=== PATIENT | female | born 1995 | race Caucasian/White ===

== ENCOUNTER 2017-07-30 13:52 | Outpatient (CLI) | payer MEDICAID, SELFPAY ==
[2017-07-30 14:05] VITALS: BP 121/71; PULSE 83; RESP 18; TEMP 36.7; O2SAT 100; BMI 23.6
[2017-07-30 14:39] LABS: Microscopic, Urine URINE MICROSCOPIC (MICROSCOPIC)
[2017-07-30 14:47] LABS: Appearance,Urine CLEAR (Clear); Bilirubin,Urine Negative (Negative); Blood, Urine 1+ (Negative); Color,Urine YELLOW (Yellow); Glucose,Urine (UA) Negative (Negative); Ketones,Urine Negative (Negative); Leukocyte Esterase,Urine Negative (Negative); Nitrate,Urine Negative (Negative); Protein,Urine Negative (Negative); Urobilinogen,Urine 0.2 EU/dl (0.2)
[2017-07-30 14:56] LABS: Amphetamine/Metha Screen,Urine Negative ng/mL (<1000); Barbiturates Screen,Urine Negative ng/mL (<200); Benzodiazepines Screen,Urine Negative ng/mL (200); Cannabinoid Screen,Urine Negative ng/mL (<50); Cocaine Screen,Urine Negative ng/g (<300); Methadone Screen,Urine Negative ng/mL (<300); Opiate Screen,Urine Negative ng/mL (<300); Phencyclidine Screen,Urine Negative ng/mL (<25)
[2017-07-30 15:00] LABS: Bacteria,Urine 3+ /lpf; Mucus,Urine 2+ /lpf
== END 2017-07-30 16:20 | disposition hospice, home (50) ==
LOC: OBOUT 13:57 → OB 13:57
PROVIDERS: PCP Nurse Practitioner Obstetrics & Gynecology; Visit Provider Obstetrics & Gynecology
DX: O60.03 Preterm labor without delivery, third trimester (principal); Z3A.35 35 weeks gestation of pregnancy
CPT/HCPCS: 59025; 80305; 81001; 87086; 96360; 96367

== ENCOUNTER → 2017-08-02 17:28 | Outpatient (REF) | payer MEDICAID, SELFPAY | LOC: LAB 17:28 | PROVIDERS: Visit Provider Nurse Practitioner Obstetrics & Gynecology | DX: Z34.90 Encounter for supervision of normal pregnancy, unspecified, unspecified trimester (principal) | CPT/HCPCS: 86403 ==

== ENCOUNTER → 2017-08-22 11:29 | Outpatient (CLI) | payer MEDICAID, SELFPAY ==
--- NOTE | 2017-08-22 | US_ITS ---
US OB biophysical profile, US OB follow up, US SD Ratio umbilcal artery: Indication: Small for gestational age ITS.REASON: US OB- SGA ORDERING PHYSICIAN: Ran Clayton MD PATIENT AGE: 22 years COMPARISON is made to 04/18/2017 exam FINDINGS: There is a single live fetus present in cephalic presentation. Average ultrasound age is 36 weeks 4 days with an estimated due date of 09/15/2017. Previous exam estimated due date of 09/05/2017. Estimated due date by last menstrual period is 09/03/2017. The following parameters are obtained: Average ultrasound age is 36w4d. Estimated due date by ultrasound is 09/15/2017. Estimated weight is 2875 g. This is 16th percentile BPD: 36w5d OFD: 39w4d HC: 36w5d AC: 35w5d FL: 37w1d heart rate: 136 bpm. HC/AC: 1.02 (0.92-1.05) Cephalic index: 79% (70-86%) FL/BPD: 80% (71-87%) FL/AC: 23% (20-24%) Amniotic fluid index: 8.4 cm Qualitative AFV: 2 breathing movements: 2 Gross body movements: 2 Tone: 2 Biophysical profile score: 8/8 Doppler evaluation of the umbilical artery: SD ratio: 3.5 Resistive index: 0.72 No obvious anomalies evident. Placenta: posterior and grade 2. No obvious previa or abruption Cervix: Appears closed and measures 3 cm IMPRESSION: There is a single live fetus in cephalic presentation with an average ultrasound age of 36 weeks and 4 days measuring at 16 percentile. No obvious anomalies. All parameters correlate. Biophysical profile 8 of 8. Amniotic fluid index at lower limits of normal at 8 cm S/D ratio and resistive index both slightly elevated. Placenta is grade 2.
== END ==
PROVIDERS: PCP Family Medicine; Visit Provider Nurse Practitioner Obstetrics & Gynecology
DX: O36.5131 Maternal care for known or suspected placental insufficiency, third trimester, fetus 1 (principal)
CPT/HCPCS: 76816; 76819; 76820

== ENCOUNTER 2017-08-31 04:54 | Inpatient (IN) | payer MEDICAID, SELFPAY ==
[2017-08-31 05:01] VITALS: BMI 25.9
[2017-08-31 05:15] VITALS: BP 151/81; PULSE 85; RESP 17; TEMP 36.7; O2SAT 98; BMI 25.9
[2017-08-31 05:53] LABS: Basophils % 0.3 % (0.1-2.0); Eosinophils % 0.4 % (0.1-12.0); Hemoglobin 12.3 g/dL (12.2-16.2); Lymphocytes % 19.8 K/mm3 (10-50); Mean Corpuscular HGB Conc 32.3 g/dL (31.8-35.4); Mean Corpuscular Hemoglobin 27.2 pg (27.0-31.2); Mean Corpuscular Volume 84.2 fl (81-99); Monocytes # 0.4 K/mm3 (0.1-1.0); Monocytes % 3.6 % (1.7-9.3); Neutrophils # 7.7 K/mm3 (1.8-7.8); Neutrophils % 75.8 % (37.0-80.0); Platelet Count 285 K/mm3 (142-424); Red Blood Count 4.51 M/mm3 (4.20-5.40); Red Cell Distribution Width 13.3 % (11.5-17.5); White Blood Count 10.1 K/mm3 (4.8-10.8)
[2017-08-31 06:14] LABS: Amphetamine/Metha Screen,Urine Negative ng/mL (<1000); Barbiturates Screen,Urine Negative ng/mL (<200); Benzodiazepines Screen,Urine Negative ng/mL (200); Cannabinoid Screen,Urine Negative ng/mL (<50); Cocaine Screen,Urine Negative ng/g (<300); Methadone Screen,Urine Negative ng/mL (<300); Opiate Screen,Urine Negative ng/mL (<300); Phencyclidine Screen,Urine Negative ng/mL (<25)
[2017-08-31 07:30] VITALS: BP 127/71; PULSE 68; RESP 18; TEMP 36.9; O2SAT 99
--- NOTE | 2017-08-31 08:31 | HMH.OBAPHP ---
OB - H&P: HPI Antepartum - History of Present Illness Chief complaint: Early labor, contractions - History of Present Criteria for establishing EDC:: LMP confirmed by 1st trimester US care: good care Ultrasounds: normal 1st trimester US, normal mid trimester US Obstetrical complications: none Medical complications: none Planning to breastfeed?: Yes [facility] History I have reviewed the patient's past medical history: Yes Medical History: Reports:: Depression Denies:: Anxiety, Asthma, Seizures Laterality Cases: Bilateral: Tonsillectomy Amputation: No Fractures: No - *Social History Smoking Status: Current every day smoker Tobacco Type: cigarettes # Packs/Day (cigarettes): 1 Alcohol Intake: never Substance Use Type: marijuana, opiates - Psychiatric History Pschychiatric History:: Reports:: Depression Denies:: Anxiety *Family Hx:: Diabetes, Hypertension Para: 1 Meds Home Medications Medication Instructions Recorded Confirmed Type fluoxetine 10 mg capsule 10 mg PO QDAY 06/30/17 08/31/17 History 1 tab PO QDAY 06/30/17 08/31/17 History vitamin,calcium,chxsbcqs-cmtf-qqcmn acid tablet Allergies Allergy/AdvReac Type Severity Reaction Status Date / Time No Known Drug Intolerances Allergy Unknown NA Verified 08/29/17 11:02 OB - H&P: Exam - Physical Exam Vital signs: Temp Pulse Resp BP Pulse Ox 98.0 F 85 17 151/81 98 08/31/17 05:15 08/31/17 05:15 08/31/17 05:15 08/31/17 05:15 08/31/17 05:15 - Constitutional no acute distress OB - Results - Labs Labs: Short CBC 08/31/17 Range/Units 05:30 WBC 10.1 (4.8-10.8) K/mm3 Hgb 12.3 (12.2-16.2) g/dL Hct 38.0 (37.0-47.0) % Plt Count 285 (142-424) K/mm3 OB - A/P Antepartum (1) Normal delivery at term Current visit: Yes Status: Acute - Additional Plan Plan: expectant management (We have ruptured her membranes.) Planning to breastfeed?: Yes
--- NOTE | 2017-08-31 08:33 | HMH.LABNOT ---
Labor Note - Subjective: Date: 08/31/17 Time: 08:33 regular contraction - Objective: NST:: Reactive Contractions:: every 2-3 minutes Cervical Dilation:: 4 Effacement:: 75% Station: -2 Membranes: articially ruptured - Fetus: Monitoring?: Yes monitoring type:: External - Assessment: Labor progressing?: Yes Patient Problems: All Active Problems Normal delivery at term (Acute) (Acute) - Plan: Anesthesia for epidural?: No Continue to labor down?: Yes Plan for ?: No Continue to monitor?: Yes Start pushing?: No
--- NOTE | 2017-08-31 09:45 | P.PN_ITS ---
[facility] Anesthesia Checklist - Patient Identification Patient Identification: Arm Band, Verbal (Name & ) - Structural Data Admitted From: Inpatient Planned Operative Procedure/s: labor epidural Consent for Planned Operative Procedure(s) Verified: Yes Verified Documents: Surgical Consent - NPO Status Verified Time NPO: 00:00 - Chart Verification Results Verified: CBC, BMP - Additional verifications Patient : No Anesthesia Reactions: No Hx Blood Transfusions: No Blood Transfusion Reaction: No Cephalosporin Allergy: No Previous Colonoscopy: No - Cardiovascular Assessment Heart Sounds: S1 & S2 Pulse Strength: Baseline Pulse Rhythm: Regular Peripheral Edema: No - Airway Assessment C-Spine Mobility Assessed: Yes TMJ Mobility Assessed: Yes Dentition: Good Dentition - Neurological Assessment Level of Consciousness: Awake, Alert, Appropriate Hx Seizures: No Numbness or tingling in extremities: No - Anesthesia Plan Anesthesia Risk discussed: Yes Anesthesia Plan: Verified ASA Class: II Anesthesia Type: Epidural [facility] Anesthesia HX I have reviewed the patient's past medical history: Yes Medical History: Reports:: Depression Denies:: Anxiety, Asthma, Seizures Laterality Cases: Bilateral: Tonsillectomy Amputation: No Fractures: No *Family Hx:: Diabetes, Hypertension
--- NOTE | 2017-08-31 10:45 | HMH.LABNOT ---
Labor Note - Subjective: Date: 08/31/17 Time: 10:45 regular contraction - Objective: NST:: Reactive Contractions:: every 2-3 minutes Cervical Dilation:: 4-5 Effacement:: 75% Station: -1 Membranes: articially ruptured - Fetus: Monitoring?: Yes monitoring type:: External - Assessment: Labor progressing?: Yes Cephalopelvic disproportion?: No Patient Problems: All Active Problems Normal delivery at term (Acute) (Acute) - Plan: Anesthesia for epidural?: Yes Continue to labor down?: Yes Plan for ?: No Continue to monitor?: Yes Start pushing?: No
--- NOTE | 2017-08-31 13:17 | HMH.DN ---
- Delivery Note Delivery Date:: 08/31/17 Delivery Time:: 13:07 Anesthesia Type: Epidural Was labor medically induced?: No Induction method: none delivered prior to 39 weeks?: No Justification for early elective delivery:: Active Labor Gender: Female at 1 minute: 9 at 5 minutes: 9 AF:: Clear fluid Delivery Procedure:: She is a 22-year-old 2 para 1 who was 39+ weeks gestational age. She was having irregular contractions and was found to be 4 cm dilated. As result of that we elected to deliver her. She had her membranes ruptured and under labor epidural progressed to full dilation. She delivered spontaneously a liveborn female child at 1:07 PM in the afternoon of August 31, 2017. On deliver the head the anterior shoulder then delivered followed by the rest of the infant's body atraumatically. The oropharynx and nasopharynx were bulb suctioned. The baby cried spontaneously. We allowed the cord to continue to pulsate for 1 minute. The cord was then doubly clamped and cut and the infant was placed on the mother's abdomen for further care. The nurses assigned Apgars of 9 at 1 minute and 9 at 5 minutes. We then obtained cord blood as well as cord pH. Using gentle traction on the cord and countertraction on the fundus I was able to easily deliver the placenta intact. He had a normal three-vessel cord. There were no perineal or vaginal lacerations. She has O+ blood, she is rubella immune and was group A streptococcus negative. She plans to breast-feed. Estimated blood loss was approximately 400 cc. Placental Delivery Description: Spontaneous
--- NOTE | 2017-08-31 15:46 | SW/DCPLANNER ---
Addendum entered by [place] Ple[place] Unity 10/04/17 10:34: Infant cord screen is NEGATIVE. Original Note: Addendum entered by [place] Ple[place] Unity 09/01/17 14:00: I have spoke with Annemarie from the [place] office...Annemarie will be contacting our OB department. Annemarie: [phone] Original Note: Addendum entered by [place] Ple[place] 09/01/17 13:09: Mauricio Arredondo is NOT the worker on this case.....[phone] Original Note: Addendum entered by [place] Ple[place] Unity 09/01/17 12:12: This case was accepted by [facility] and has been assigned to ordnance truck installation supervisor at moment Mauricio Arredondo in [facility]. [phone] Original Note: Received a referral regarding drug use during this patients . Patient delivered a liveborn female (Maryam Arredondo) this afternoon. Patient also has a 15 month old son (Zac Arredondo). Father of both children is Brice Arredondo. Family will reside with fathers mother at [address] [place] [address] in [place] [address]. Patient tested positive for BZO, OYX, THC on first visit 02/03. Patient urine drug screen was negative on: 03/03, 07/12, 07/30, 08/15, 08/22, 08/29, 08/31 (admission). has begin to score (3) at this time due to sneezing and tremors. This situation has been reported to [facility] Central Intake [phone]. I will call and follow up with infant urine once available. Patient and infant are already established with [facility] and refuses HANDS at this time. Patient stated that they have a crib, carseat, clothing, and patient has stated they will have diapers before they discharge. Patient stated she has had no social service involvement in the past. I will follow up with [facility] tomorrow morning. Patient is expected to discharge on Tuesday09/02/17.
[2017-08-31 20:00] VITALS: BP 137/78; PULSE 87; RESP 18; TEMP 36.3; O2SAT 97
[2017-09-01 00:20] VITALS: BP 129/74; PULSE 81; RESP 16; TEMP 36.6
[2017-09-01 05:20] VITALS: BP 121/65; PULSE 75; RESP 16; TEMP 36.9; O2SAT 98
[2017-09-01 06:48] LABS: Hemoglobin 10.7 g/dL (12.2-16.2)
--- NOTE | 2017-09-01 08:23 | HMH.ACPN2 ---
Internal Medicine - PN: Subj *Date: 09/01/17 *Time: 08:23 Exam Vital signs and Labs for Last 24 Hours: Temp Pulse Resp BP Pulse Ox 98.4 F 75 16 121/65 98 09/01/17 05:20 09/01/17 05:20 09/01/17 05:20 09/01/17 05:20 09/01/17 05:20 Laboratory Results - last 24 hr 08/31/17 13:16: Cord ABG pH 7.40 09/01/17 06:30: Hgb 10.7 L, Hct 33.0 L I & O for Last 24 hours: Intake & Output 08/29/17 08/30/17 08/31/17 09/01/17 11:59 11:59 11:59 11:59 Intake Total 2650 / 2650 Balance 2650 / 2650 Weight 156 lb Assessment and Plan (1) Normal delivery at term Current visit: Yes Status: Acute Category: Medical Code(s): O80 - Encounter for full-term uncomplicated delivery
--- NOTE | 2017-09-01 08:26 | HMH.ACPN2 ---
Internal Medicine - PN: Subj *Date: 09/01/17 *Time: 08:26 Interval history: She is doing well this morning and she is eating and drinking and ambulating. She is bottlefeeding. Exam Vital signs and Labs for Last 24 Hours: Temp Pulse Resp BP Pulse Ox 98.4 F 75 16 121/65 98 09/01/17 05:20 09/01/17 05:20 09/01/17 05:20 09/01/17 05:20 09/01/17 05:20 Laboratory Results - last 24 hr 08/31/17 13:16: Cord ABG pH 7.40 09/01/17 06:30: Hgb 10.7 L, Hct 33.0 L I & O for Last 24 hours: Intake & Output 08/29/17 08/30/17 08/31/17 09/01/17 11:59 11:59 11:59 11:59 Intake Total 2650 / 2650 Balance 2650 / 2650 Weight 156 lb - Constitutional no acute distress Assessment and Plan (1) Normal delivery at term Current visit: Yes Status: Acute Category: Medical Code(s): O80 - Encounter for full-term uncomplicated delivery - Assessment and plan all Dx Assessment and Plan for all problems:: She is doing well we will plan to send her home tomorrow.
[2017-09-01 11:07] VITALS: RESP 18
[2017-09-01 16:11] VITALS: RESP 18
--- NOTE | 2017-09-01 20:20 | PC.NURSE ---
social services assistant prevention plan: to go home with parents upon discharge saravanan Frederick would like to be contacted when results of cord are returned work #[phone] or cell # [phone]
--- NOTE | 2017-09-02 08:17 | HMH.DCSUM ---
General - General Admission date: 08/31/17 Discharge date: 09/02/17 HPI HPI: She is a 22-year-old 2 now para 2 who was 39 and 4 weeks gestational age. She came in in early labor. Hospital Course Hospital Course: She progressed to full dilation and delivered spontaneously a liveborn female child at 1:07 PM in the afternoon of August 31, 2017. Baby had Apgars of 9 at 1 minute and 9 at 5 minutes. She has done well and has remained afebrile throughout her hospitalization. She is eating and drinking and ambulating. She is bottlefeeding. She has O+ blood, she is rubella immune and was group B streptococcus negative. Her caustic cresylate shift superintendent is Dr. Alvarenga. She is discharged home to follow-up with me in 2 weeks time. Objective Vital signs: Temp Pulse Resp BP Pulse Ox 98.4 F 75 18 121/65 98 09/01/17 05:20 09/01/17 05:20 09/01/17 16:11 09/01/17 05:20 09/01/17 05:20 no acute distress DS: Diagnosis - Discharge Diagnosis (1) Normal delivery at term Status: Acute Discharge Plan - Patient Discharge Instructions ACTIVITY: No heavy lifting DIET: continue same diet - Follow up Plan Disposition: Home, Self-Jail Medications: Home Medications Medication Instructions Recorded Confirmed Type fluoxetine 10 mg capsule 10 mg PO DAILY 06/30/17 08/31/17 History 1 tab PO DAILY 06/30/17 08/31/17 History vitamin,calcium,mebydnlj-peko-iytnx acid tablet Prescriptions/Medication Reconciliation: Continue fluoxetine 10 mg capsule 10 mg PO DAILY vitamin,calcium,hxeajdoc-bpyh-rtbeq acid tablet 1 tab PO DAILY
--- NOTE | 2017-09-02 08:20 | P.DS_ITS ---
General - General Admission date: 08/31/17 Discharge date: 09/02/17 HPI HPI: She is a 22-year-old 2 now para 2 who was 39 and 4 weeks gestational age. She came in in early labor. Hospital Course Hospital Course: She progressed to full dilation and delivered spontaneously a liveborn female child at 1:07 PM in the afternoon of August 31, 2017. Baby had Apgars of 9 at 1 minute and 9 at 5 minutes. She has done well and has remained afebrile throughout her hospitalization. She is eating and drinking and ambulating. She is bottlefeeding. She has O+ blood, she is rubella immune and was group B streptococcus negative. Her internal affairs commander is Dr. Alvarenga. She is discharged home to follow-up with me in 2 weeks time. Objective Vital signs: Temp Pulse Resp BP Pulse Ox 98.4 F 75 18 121/65 98 09/01/17 05:20 09/01/17 05:20 09/01/17 16:11 09/01/17 05:20 09/01/17 05:20 no acute distress DS: Diagnosis - Discharge Diagnosis (1) Normal delivery at term Status: Acute Discharge Plan - Patient Discharge Instructions ACTIVITY: No heavy lifting DIET: continue same diet - Follow up Plan Disposition: Home, Self-Usp Medications: Home Medications Medication Instructions Recorded Confirmed Type fluoxetine 10 mg capsule 10 mg PO DAILY 06/30/17 08/31/17 History 1 tab PO DAILY 06/30/17 08/31/17 History vitamin,calcium,kbqvmegr-gosp-cneev acid tablet Prescriptions/Medication Reconciliation: Continue fluoxetine 10 mg capsule 10 mg PO DAILY vitamin,calcium,yzdzuagk-ylha-vnxyb acid tablet 1 tab PO DAILY
[2017-09-02 11:21] VITALS: RESP 18
[2017-09-02 15:23] VITALS: RESP 18
== END 2017-09-02 07:08 | disposition home or self-care (01) | DRG 775 ==
PROVIDERS: Admitting Provider Nurse Practitioner Obstetrics & Gynecology; Visit Provider Nurse Practitioner Obstetrics & Gynecology
DX: O80 Encounter for full-term uncomplicated delivery (principal); Z37.0 Single live birth; Z3A.39 39 weeks gestation of pregnancy
CPT/HCPCS: 59409; 36415; 59025; 80305; 82800; 85014; 85018; 85025; 86850; 90686